=== PATIENT | female | born 2000 | race African-American/Black ===

== ENCOUNTER 2023-01-21 08:57 | Emergency (ER) | payer MEDICAID ==
[~2023-01-21] VITALS: Ht 162.6 cm; Wt 60.0 kg
[2023-01-21 09:58] VITALS: BP 122/64
[2023-01-21 10:01] LABS: BASOPHILS % 0.3 % (0.0-2.0); EOSINOPHILS % 0.1 % (0.0-5.0); HEMATOCRIT. 34.7 % (36.0-48.0); HEMOGLOBIN. 11.9 g/dL (12.0-16.0); MEAN CORPUSCULAR HEMOGLOBIN 29.6 pg (28.0-32.0); MEAN CORPUSCULAR VOLUME 86.2 fL (81.0-99.0); MEAN PLATELET VOLUME 7.8 fl (7.4-10.4); MONOCYTES % 5.7 % (2.0-8.0); NEUTROPHILS % 83.9 % (40.0-76.0); PLATELET 279 x1000/uL (130-400); RED BLOOD CELL COUNT 4.03 mill/uL (4.2-5.4); RED CELL DISTRIBUTION WIDTH 14.4 % (11.6-14.6)
[2023-01-21 10:08] LABS: CHLORIDE 105 mEq/L (98-107)
[2023-01-21 10:11] LABS: HCG SCREEN NEGATIVE
[2023-01-21 10:15] LABS: ETHANOL BLOOD < 10 mg/dL
== END 2023-01-21 10:01 | disposition home or self-care (01) ==
LOC: ER 08:57
DX: F19.10 Other psychoactive substance abuse, uncomplicated (principal); F17.290 Nicotine dependence, other tobacco product, uncomplicated; F12.10 Cannabis abuse, uncomplicated; Z86.59 Personal history of other mental and behavioral disorders
CPT/HCPCS: 36415; 80053; 80320; 84703; 85025; 99283; 99406; G0480